=== PATIENT | male | born 1985 | race Hispanic/Latino ===

== ENCOUNTER → 2020-06-30 | Outpatient (CLI) | payer OTHER | END | disposition home or self-care (01) | LOC: RAH 13:39 | PROVIDERS: ATTEND Family Medicine | DX: M51.16 Intervertebral disc disorders with radiculopathy, lumbar region (principal); M51.24 Other intervertebral disc displacement, thoracic region; Z79.899 Other long term (current) drug therapy | CPT/HCPCS: 72146; 72148 ==

== ENCOUNTER → 2022-03-25 | Outpatient (CLI) | payer OTHER | END | disposition home or self-care (01) | LOC: RAH 13:52 | PROVIDERS: ATTEND Family Medicine | DX: M48.061 Spinal stenosis, lumbar region without neurogenic claudication (principal); M51.16 Intervertebral disc disorders with radiculopathy, lumbar region | CPT/HCPCS: 72148 ==